=== PATIENT | female | born 2000 | race American Indian/Alaskan Native ===

== ENCOUNTER 2019-06-18 11:58 | Emergency (ER) | payer OTHER ==
[2019-06-18 12:06] VITALS: BP 129/60
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
[2019-06-18] MEDS ORDERED: IBUPROFEN 800 MG TAB PO ONE (12:56)
== END 2019-06-18 13:19 | disposition home or self-care (01) ==
LOC: ED 11:58
DX: S16.1XXA Strain of muscle, fascia and tendon at neck level, initial encounter (principal); M54.89 Other dorsalgia; R51 Headache; V89.2XXA Person injured in unspecified motor-vehicle accident, traffic, initial encounter; Y93.89 Activity, other specified; Y92.410 Unspecified street and highway as the place of occurrence of the external cause; Y99.8 Other external cause status
CPT/HCPCS: 99282

== ENCOUNTER 2019-06-19 15:00 | Emergency (ER) | payer OTHER ==
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
[2019-06-19 15:40] LABS: Basophils % (Auto) 0.6 % (0.0-1.8); Eosinophils # (Auto) 0.2 K/mm3 (0.0-0.4); Eosinophils % (Auto) 3.3 % (0.0-4.3); Hematocrit 39.1 % (30.3-42.9); Hemoglobin 13.2 gm/dl (10.1-14.3); Lymphocytes # (Auto) 1.4 K/mm3 (1.2-5.4); Lymphocytes % (Auto) 26.4 % (13.4-35.0); Mean Corpuscular HGB Conc 34 % (30-34); Mean Corpuscular Volume 84 fl (79-97); Monocytes # (Auto) 0.4 K/mm3 (0.0-0.8); Monocytes % (Auto) 8.1 % (0.0-7.3); Platelet Count 143 K/mm3 (140-440); Red Blood Count 4.67 M/mm3 (3.65-5.03); Red Cell Distribution Width 14.4 % (13.2-15.2)
[2019-06-19 15:59] LABS: BUN/Creatinine Ratio 20; Blood Urea Nitrogen 10 mg/dL (7-17); Calcium 8.9 mg/dL (8.4-10.2); Hemolysis Index 15
--- NOTE | 2019-06-19 18:19 | Emergency Department Report ---
ED Chest Pain HPI - General Chief Complaint: Chest Pain Stated Complaint: CHEST PAIN/HEADACHE Time Seen by Provider: 06/19/19 18:17 Source: patient Mode of arrival: Ambulatory Limitations: No Limitations - History of Present Illness MD Complaint: chest pain -: Sudden - Related Data Previous Rx's Medication Instructions Recorded Last Taken Type Cyclobenzaprine HCl [Flexeril 5 MG 5 mg PO TID PRN #15 tab 06/18/19 Unknown Rx TAB] Ibuprofen [Motrin 600 MG tab] 600 mg PO TID 4 Days #12 tablet 06/18/19 Unknown Rx Allergies Allergy/AdvReac Type Severity Reaction Status Date / Time No Known Allergies Allergy Verified 06/19/19 15:13 ED Review of Systems ROS: Stated complaint: CHEST PAIN/HEADACHE Other details as noted in HPI ED Past Medical Hx - Past Medical History Additional medical history: heart murmur - Social History Smoking Status: Never Smoker Substance Use Type: None - Medications Home Medications: Home Medications Medication Instructions Recorded Confirmed Last Taken Type Cyclobenzaprine HCl [Flexeril 5 MG 5 mg PO TID PRN #15 tab 06/18/19 Unknown Rx TAB] Ibuprofen [Motrin 600 MG tab] 600 mg PO TID 4 Days #12 tablet 06/18/19 Unknown Rx ED Physical Exam - General Limitations: No Limitations ED Course Vital Signs 06/19/19 15:11 Temperature 99.0 F Pulse Rate 80 Respiratory 15 Rate Blood Pressure 138/75 O2 Sat by Pulse 98 Oximetry ED Medical Decision Making - Lab Data Result diagrams: 06/19/19 15:29 06/19/19 06:34 Critical care attestation.: If time is entered above; I have spent that time in minutes in the direct care of this critically ill patient, excluding procedure time. ED Disposition Condition: Stable
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
[2019-06-19 23:23] VITALS: BP 100/62
== END 2019-06-19 22:55 | disposition home or self-care (01) ==
LOC: ED 15:00
DX: S33.5XXA Sprain of ligaments of lumbar spine, initial encounter (principal); S23.9XXA Sprain of unspecified parts of thorax, initial encounter; S16.1XXA Strain of muscle, fascia and tendon at neck level, initial encounter; R51 Headache; Z79.899 Other long term (current) drug therapy; V49.59XA Passenger injured in collision with other motor vehicles in traffic accident, initial encounter; Y93.89 Activity, other specified; Y92.410 Unspecified street and highway as the place of occurrence of the external cause; Y99.8 Other external cause status
CPT/HCPCS: 36415; 71111; 72040; 72070; 72100; 80048; 84484; 84703; 85025; 93005; 93010